=== PATIENT | female | born 1950 | race African-American/Black ===

== ENCOUNTER 2019-01-05 13:52 | Emergency (ER) | payer OTHER ==
[~2019-01-05] VITALS: Ht 172.7 cm; Wt 117.9 kg
[2019-01-05] MEDS ORDERED: cloNIDine HCL 0.1 MG TAB PO ONE (14:15)
[2019-01-05 15:16] LABS: Eosinophils # (auto) 0.1 uL; Hemoglobin 13.1 g/dL (12.2-16.2); Mean Corpuscular Hemoglobin 26.9 pg (28.0-32.0); Mean Corpuscular Hgb Conc. 32.6 g/dL (32.0-36.0); Red Cell Distribution Width 14.6 % (11.8-14.3)
[2019-01-05 15:20] LABS: Albumin 3.3 g/dL (3.4-5.0); Anion Gap 8 (5-15); BUN/Creatinine Ratio 13.5; Blood Urea Nitrogen 10 mg/dL (7-18); Calcium 8.9 mg/dL (8.5-10.1); Carbon Dioxide 25 mmol/L (21-32); Chloride 107 mmol/L (98-107); GFR African American 101 mL/min; GFR Non-African American 83 mL/min; Glucose 235 mg/dL (74-106); Magnesium 1.6 mg/dL (1.6-2.6); Potassium 3.1 mmol/L (3.5-5.1); Sodium 140 mmol/L (136-145)
[2019-01-05 15:22] LABS: Basophils # (auto) 0 uL; Basophils % (auto) 0.4 % (0.0-2.0); Eosinophils % (auto) 1.4 % (0.0-7.0); Hematocrit 40.1 % (36.0-46.0); Lymphocytes # (auto) 1.3 uL; Mean Corpuscular Volume 82.3 fL (80.0-100.0); Monocytes # (auto) 0.3 uL; Monocytes % (auto) 4.5 % (0.0-12.0); Neutrophils # (auto) 4.7 uL; Neutrophils % (auto) 73.7 % (37.0-80.0); Nucleated Red Blood Cells % 0.1 %; Platelet Count (auto) 283 10^3/uL (140-450); Red Blood Cells 4.87 10^6/uL (4.0-5.20); White Blood Cell 6.3 10^3/uL (4.4-10.8)
[2019-01-05 15:25] LABS: Alanine Aminotransferase 16 U/L (13-56); Alkaline Phosphatase 92 U/L (45-117); Aspartate Aminotransferase 11 U/L (15-37); Bilirubin, Total 0.4 mg/dL (0.2-1.0)
[2019-01-05 15:56] LABS: Urine Bacteria FEW /hpf (None Seen); Urine Blood Negative /uL (Negative); Urine Specific Gravity 1.003 (1.001-1.035); Urine WBC 4 /hpf (0 - 5)
[2019-01-05] MEDS ORDERED: POTASSIUM CHL 20 Meq TABLET PO ONE (16:45)
[2019-01-05 17:55] VITALS: BP 164/73
== END 2019-01-05 18:04 | disposition home or self-care (01) ==
LOC: EDUNIT# 13:52 → ER 13:52 → EDBD 13:52 → ER 18:04
DX: R42 Dizziness and giddiness (principal); R55 Syncope and collapse; I16.0 Hypertensive urgency; I10 Essential (primary) hypertension; K21.9 Gastro-esophageal reflux disease without esophagitis; E11.9 Type 2 diabetes mellitus without complications; Z98.51 Tubal ligation status; Z86.39 Personal history of other endocrine, nutritional and metabolic disease
CPT/HCPCS: 36415; 80053; 81001; 83735; 84484; 85025; 93005; 94761